=== PATIENT | female | born 1970 | race Caucasian/White ===

== ENCOUNTER 2018-08-01 17:56 | Emergency (ER) | payer BC, OTHER ==
[~2018-08-01] VITALS: Ht 160 cm; Wt 56.2 kg
--- NOTE | 2018-08-01 19:31 | Diagnostic Imaging Report ---
Clinical indication: Patient rolled ankle on rug that was bunched up and heard a cracking sound. Exam: X-ray of the right ankle, 3 views. Comparison: None. Findings and impression: 1: There is a small calcification seen inferior to the medial malleolar region which may represent a mildly distracted fracture of the medial malleolus. There is mild soft tissue swelling adjacent to this region. Clinical correlation for pain in this region is suggested. 2: There is no other area concerning for fracture or dislocation. The ankle mortise and syndesmotic joint are unremarkable. Dictated by: Dictated on workstation # [id number]
--- NOTE | 2018-08-01 20:09 | ED Lower Extremity ---
General Chief Complaint: Lower Extremity Stated Complaint: RT ANKLE INJ Nursing Triage Note: ROLLED ANKLE AND HEARD LOUD CRUNCH. IS PAINFUL TO MOVE AND HAS NOT PUT WEIGHT ON IT SINCE SHE ROLLED IT. Nursing Sepsis Screen: No Definite Risk Source: patient Exam Limitations: no limitations History of Present Illness Date Seen by Provider: Aug 01, 2018 Time Seen by Provider: 18:42 Initial Comments This 48-year-old woman presents to the emergency room with a right ankle injury. She rolled her ankle when catching her foot on a rug. She felt some heard a crunching in the ankle and then had immediate pain. She has not taken any medication for it. She is not able to tolerate weightbearing. She denies any other injury. 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 Allergies and Home Medications Allergies Coded Allergies: amoxicillin (Verified Allergy, Unknown, 08/01/18) clavulanic acid (Verified Allergy, Unknown, 08/01/18) minocycline (Verified Allergy, Unknown, 08/01/18) moxifloxacin (Verified Allergy, Unknown, 08/01/18) Home Medications Hydrocodone/Acetaminophen 1 Each Tablet, 1 TAB PO Q4-6HR Prescribed by: NELSON SHETH on 08/01/182010 Patient Home Medication List Home Medication List Reviewed: Yes Review of Systems Constitutional: no symptoms reported EENTM: no symptoms reported Respiratory: no symptoms reported Cardiovascular: no symptoms reported Gastrointestinal: no symptoms reported Genitourinary: no symptoms reported : No Musculoskeletal: see HPI Skin: no symptoms reported Psychiatric/Neurological: No Symptoms Reported Past Wqczwlj-Nbpkes-Wuhcjv Hx Patient Social History Alcohol Use: Denies Use Recreational Drug Use: No Smoking Status: Never a Smoker 2nd Hand Smoke Exposure: No Recent Foreign Travel: No Contact w/Someone Who Travel: No Recent Infectious Disease Expo: No Recent Hopitalizations: No Physical Abuse: No Sexual Abuse: No Mistreated: No Seasonal Allergies Seasonal Allergies: No Past Medical History Surgeries: No (None reported) Respiratory: No Cardiac: No Neurological: No : No Genitourinary: No Gastrointestinal: No Musculoskeletal: No Endocrine: No HEENT: No 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 oz. 56.060530kl; BMI Method:Stated General Appearance: WD/WN, no apparent distress HEENT: normal ENT inspection Cardiovascular: regular rate, rhythm, no edema, no murmur Respiratory: lungs clear, normal breath sounds, no respiratory distress Legs: bilateral leg non-tender, bilateral leg normal inspection, bilateral leg normal range of motion, bilateral leg no evidence of injury Knees: bilateral knee non-tender, bilateral knee normal inspection, bilateral knee normal range of motion, bilateral knee no evidence of injury Ankles: left ankle non-tender, left ankle normal inspection, left ankle normal range of motion, left ankle no evidence of injury; right ankle bone tenderness ( Just distal to each malleoli), right ankle pain, right ankle swelling Feet: bilateral foot non-tender, bilateral foot normal inspection, bilateral foot normal range of motion, bilateral foot no evidence of injury Neurologic/Tendon: normal sensation, normal motor functions Neurologic/Psychiatric: care support representative II-XII nml as tested, no motor/sensory deficits, alert, normal mood/affect, oriented x 3 Skin: normal color, warm/dry Progress/Results/Core Measures Results/Orders My Orders Orders - NELSON SMITH MD Ankle 3 View Right (08/01/18 18:48) Rx-Hydrocodone/Apap 5-325 Mg (Rx-Vicodin (08/01/18 20:41) Vital Signs/I&O 08/01/18 08/01/18 18:17 20:22 Temp 98.7 98.9 Pulse 84 82 Resp 16 16 B/P (MAP) 160/96 (117) 132/68 (89) Pulse Ox 99 99 Blood Pressure Mean: 117 Progress Progress Note : Progress Note Ankle fracture was identified. Patient was fitted with a step light boot and crutches. Close follow-up with an orthopedist because of her line of work as a dancer and dances instructor was recommended. Diagnostic Imaging Diagonstic Imaging: Xray Plain Films/CT/US/NM/MRI: ankle Comments Ankle x-ray reviewed by me and report reviewed. See report below: NAME: DESIRAE [facility] REC#: [id number] PT STATUS: REG ER : 1970 PHYSICIAN: NELSON SMITH MD ADMIT DATE: 08/01/18/ER FS Signed Date of Exam: 08/01/18 ANKLE 3 VIEW RIGHT Clinical indication: Patient rolled ankle on rug that was bunched up and heard a cracking sound. Exam: X-ray of the right ankle, 3 views. Comparison: None. Findings and impression: 1: There is a small calcification seen inferior to the medial malleolar region which may represent a mildly distracted fracture of the medial malleolus. There is mild soft tissue swelling adjacent to this region. Clinical correlation for pain in this region is suggested. 2: There is no other area concerning for fracture or dislocation. The ankle mortise and syndesmotic joint are unremarkable. Dictated by: Dictated on workstation # [id number] Dict: 08/01/181922 Trans: 08/01/182010 Interpreted by: MIA VELIZ MD Electronically signed by: MIA VELIZ MD 08/01/182010 Departure Impression Primary Impression: Closed right ankle fracture Qualified Codes: S82.891A - Other fracture of right lower leg, initial encounter for closed fracture Disposition: 01 HOME, SELF-CARE Condition: Improved Departure-Patient Inst. Decision time for Depature: 20:07 Referrals: NO,LOCAL PHYSICIAN (PCP) Primary Care Physician ESTER SHANNON MD Patient Instructions: Ankle Fracture, Ankle Sprain (DC) Add. Discharge Instructions: Rest, elevation, and 20 minute intervals and icing should help with pain and swelling. For mild pain you may take Tylenol (acetaminophen) up to 650 mg every 6 hours as needed. For more severe pain take hydrocodone as prescribed. Use the boot as much as possible or immobilization to improve healing. Avoid weight-bearing until otherwise instructed by an orthopedic provider. Follow-up with an orthopedic provider soon as possible. Return to care if you have any further problems or concerns. All discharge instructions reviewed with patient and/or family. Voiced understanding. Scripts Hydrocodone/Acetaminophen (Hydrocodone-Acetamin 5-325 mg) 1 Each Tablet 1 TAB PO Q4-6HR for PAIN-MODERATE, #15 TAB Prov: NELSON SMITH MD 08/01/18 NELSON SMITH MD Aug 01, 2018 20:09
[2018-08-01] MEDS ORDERED: HYDR-3812 PO (20:11)
[2018-08-01 20:22] VITALS: BP 132/68
[2018-08-01] MEDS ORDERED: RX-HYDROCODONE/APAP 5/325 MG #4 TAB PK PO ONE (20:41)
== END 2018-08-01 20:22 | disposition home or self-care (01) ==
LOC: ER FS 17:57
DX: S82.51XA Displaced fracture of medial malleolus of right tibia, initial encounter for closed fracture (principal); Z88.0 Allergy status to penicillin; Z88.8 Allergy status to other drugs, medicaments and biological substances; Z88.1 Allergy status to other antibiotic agents; X50.1XXA Overexertion from prolonged static or awkward postures, initial encounter
CPT/HCPCS: 73610